=== PATIENT | male | born 2005 | race Caucasian/White ===

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

== ENCOUNTER 2023-05-19 09:45 | Outpatient (CLI) | payer OTHER, SELFPAY | END 2023-05-19 09:46 | disposition home or self-care (01) | LOC: LKVREF 09:47 | PROVIDERS: PCP Physician Assistant Medical; Visit Provider Nurse Practitioner Family | DX: E78.5 Hyperlipidemia, unspecified (principal) | CPT/HCPCS: 80061 ==

== ENCOUNTER 2023-08-25 14:13 | Outpatient (CLI) | payer OTHER, SELFPAY | END 2023-08-25 14:14 | disposition home or self-care (01) | LOC: FRMREF 14:21 | PROVIDERS: PCP Physician Assistant Medical; Visit Provider Physician Assistant Medical | DX: Z00.00 Encounter for general adult medical examination without abnormal findings (principal); E78.5 Hyperlipidemia, unspecified; E66.3 Overweight; F32.0 Major depressive disorder, single episode, mild; F32.A Depression, unspecified; R79.89 Other specified abnormal findings of blood chemistry; Z79.899 Other long term (current) drug therapy | CPT/HCPCS: 80061; 82306; 84443 ==